=== PATIENT | male | born 1960 | race Caucasian/White ===

== ENCOUNTER → 2025-04-08 11:45 | Outpatient (BNVA) | payer MEDICARE, SELFPAY | PROVIDERS: PCP Family Medicine; Visit Provider Family Medicine | DX: R73.03 Prediabetes (principal); R03.0 Elevated blood-pressure reading, without diagnosis of hypertension; R39.15 Urgency of urination; Z12.5 Encounter for screening for malignant neoplasm of prostate; Z11.59 Encounter for screening for other viral diseases; Z11.4 Encounter for screening for human immunodeficiency virus [HIV]; Z13.6 Encounter for screening for cardiovascular disorders | CPT/HCPCS: 80053; 80061; 81000; 83036; 84443; 85025; 86803; 87086; 87806; G0103 ==

== ENCOUNTER 2025-04-19 16:04 | Outpatient (CLI) | payer MEDICARE, SELFPAY ==
--- NOTE | 2025-04-19 16:15 | CT_ITS ---
WS: [id number] LDCT LUNG CANCER SCREENING HISTORY: smoker; 48 pk yr; screening TECHNIQUE: Axial imaging performed from the apices to 1 cm below the costophrenic angles. Coronal and sagittal reformats are submitted with axial MIP series. All CT scans at [facility] use at least one of these dose optimization techniques: automated exposure control; mA and/or kV adjustment per patient size (includes targeted exams where dose is matched to clinical indication); or iterative reconstruction. DLP: 55.51 mGy.cm DIvol: Mean CTDIvol: 1.00 (mGy) COMPARISON: None available. Diagnostic quality: Satisfactory Lungs: No pulmonary mass or nodule. No endobronchial lesions. No pneumonia. Heart: Normal size heart with no pericardial effusion.. Other findings: Mild atherosclerosis aorta. Mildly ectatic ascending aorta. Not aneurysmal. Normal size pulmonary artery. Scattered mild coronary artery calcific burden. Hepatic steatosis within the visualized liver. Negative adrenal glands. Moderate thoracic spondylosis. Hypertrophic osteophytes along the RIGHT lateral mid thoracic spine. CT/CT lung screening [id number] IMPRESSION: LUNG-RADS: 1-Negative FOLLOW UP: 12 Month: Continue annual screening with LDCT OTHER FINDINGS (S MODIFIER): None.
== END 2025-04-19 16:05 | disposition home or self-care (01) ==
LOC: RAD 16:08
PROVIDERS: PCP Family Medicine; Visit Provider Family Medicine
DX: F17.218 Nicotine dependence, cigarettes, with other nicotine-induced disorders (principal)
CPT/HCPCS: 71271